=== PATIENT | male | born 1940 | race Caucasian/White ===

== ENCOUNTER → 2018-06-29 09:07 | Outpatient (CLI) | payer MEDICARE, OTHER, SELFPAY ==
--- NOTE | 2018-06-29 | DI.MRI.S_ITS ---
PROCEDURE: MR KNEE RT WO CON INDICATIONS: PRIMARY OSTEOARTHRITIS RIGHT KNEE TECHNIQUE: Noncontrast sagittal PD fast spin echo and T2 fast spin echo with fat saturation, sagittal 3-D FLASH with fat saturation; coronal T1 spin echo and PD fast spin echo with fat saturation, and axial PD fast spin echo with fat saturation through the knee. COMPARISON: None. FINDINGS: Image quality: Excellent. Menisci: There is peripheral displacement of medial meniscus bowing medial collateral ligament. A complex oblique tear involving posterior horn of medial meniscus is seen extending to the inferior articulating surface. Peripheral displacement of lateral meniscus is also seen with extensive signal abnormality throughout lateral meniscus extending to both superior and inferior articulating surface. The meniscal root ligaments appear intact. Cruciate ligaments: The anterior and posterior cruciate ligaments appear intact. Medial structures: The medial collateral ligament appears intact. The posterior oblique ligament, semimembranosus tendon insertions, oblique popliteal ligament, and meniscocapsular junction appear intact. Visualized portions of the pes anserinus tendons appear normal. No abnormal bursal fluid. Lateral structures: The lateral collateral ligament, long and short heads of the biceps femoris tendon appear intact. The popliteus tendon appears normal; the popliteofibular ligament appears intact. The posterosuperior and anteroinferior popliteomeniscal fascicles appear intact. The arcuate and fabellofibular ligaments appear intact, on either side of the lateral inferior geniculate artery. Iliotibial band appears normal. Anterior structures: The quadriceps and patellar tendons appear intact. Patellar alignment is normal. No femoral trochlear dysplasia or ventral trochlear prominence. No edema in the infrapatellar fat pad. Bones and cartilage: Moderate to severe tricompartmental osteoarthritis is seen most prominent in lateral femoral tibial compartment. Extensive marrow edema involving proximal tibial shaft extending to both medial and lateral tibial plateau is seen. Adjacent marrow edema in weight bearing portion of lateral femoral condyle is seen. No definite discrete fracture line is noted. Patellar cartilage is grossly intact. Joint space: There is moderate amount of joint fluid. Possible 14 x 9 mm loose body is noted in the posterior medial aspect of right knee joint posterior and inferior to medial femoral condyle. No Tucker's cyst. Normal appearing synovial plicae are incidentally noted. IMPRESSION: 1. Moderate to severe tricompartmental osteoarthritis most prominent in lateral femoral tibial compartment. Extensive marrow edema involving proximal tibial shaft extending to medial and lateral tibial plateau. Marrow edema also seen in the adjacent weight-bearing portion of lateral femoral condyle. Finding may represent bony contusion versus changes secondary to osteoarthritis. No definite fracture is seen. 2. Moderate amount of joint effusion with a possible loose body in posterior aspect of medial femoral tibial compartment. 3. Oblique tear involving posterior horn of medial meniscus extending to inferior articulating surface. Complex tear throughout lateral meniscus extending to both superior and inferior articulating surfaces. Cruciate ligaments are intact. Dictated by: Thierry Petty M.D. on 06/29/2018 12:30 Approved by: Thierry Petty M.D. on 06/29/2018 at 13:15
== END ==
PROVIDERS: PCP Family Medicine; Visit Provider Orthopaedic Surgery
DX: S83.271A Complex tear of lateral meniscus, current injury, right knee, initial encounter (principal); S83.241A Other tear of medial meniscus, current injury, right knee, initial encounter; M17.11 Unilateral primary osteoarthritis, right knee; M25.461 Effusion, right knee
CPT/HCPCS: 73721

== ENCOUNTER 2018-08-04 15:37 | Observation (INO) | payer MEDICARE, OTHER, SELFPAY ==
[2018-07-26 08:34] VITALS: BMI 26.8
[2018-08-03] VITALS (14 sets, daily range): BP systolic 106–159; BP diastolic 62–85; PULSE 67–87; RESP 11–21; TEMP 36.1–36.8; O2SAT 93–98; BMI 26.8
--- NOTE | 2018-08-03 06:00 | DI.RAD.S_ITS ---
PROCEDURE: XR KNEE RT 1TO2V INDICATIONS: post operative right knee TECHNIQUE: 2 view(s) of the knee acquired. COMPARISON: [facility] [place], [place], XR KNEE ARTHRITIC SERIES RT, 06/06/2018, 13:16. FINDINGS: Bones: Patient is status post knee joint arthroplasty. Hardware components are in expected positions. Visualized bony structures are intact. Soft tissues: Expected postsurgical changes within the overlying soft tissues are present there is a soft tissue air, edema, and fluid. Surgical skin cynthia are seen overlying the midline anterior knee. No unexpected radiopaque foreign bodies are evident. IMPRESSION: Expected postoperative changes related to a total right knee arthroplasty. Dictated by: Tyrell Carrillo M.D. on 08/03/2018 at 12:50 Approved by: Tyrell Carrillo M.D. on 08/03/2018 at 12:51
[2018-08-03] MEDS: PREGABALIN 75 MG CAPSULE PO (09:11)
[2018-08-03] MEDS: ACETAMINOPHEN 325 MG TABLET 975 MG PO ×3 (09:12→20:51)
[2018-08-03] MEDS: CELECOXIB 200 MG CAPSULE PO (09:13)
[2018-08-03] MEDS: LACTATED RINGERS 1,000 ML 42 ML IV (09:28)
--- NOTE | 2018-08-03 10:07 | PM.PREOP ---
Pre-operative Note Interval Note Pre-op Check: Yes History & Physical Reviewed by Physician and Yes Exam Performed Changes: No
--- NOTE | 2018-08-03 10:08 | PM.OP.1 ---
Operative Date/Time/Diagnoses Date of procedure: 08/03/18 Time of procedure: 11:50 Pre-op diagnosis: Right knee osteoarthritis Post-op diagnosis: same Procedure & Clinicians Procedure: Right total knee arthroplasty Same procedure as scheduled: Yes Indications: The patient presents today for total knee arthroplasty after failure of conservative treatment. The nature of the procedure including the risks and benefits, alternatives, postoperative course and expected outcome were discussed and all questions answered. Consent was obtained. Operative site confirmed and marked. Surgeon: Roman Johnston Manager Business Continuity: Lico Choudhury Anesthesia Type: General, Spinal and Local Operative Notes Findings: Severe osteoarthritis with valgus alignment. Closure Type: primary Specimen(s): none sent Implants & Drains: [employer] BCS: 7 femoral component, 6 tibial component, 9 mm BCS polyethylene tray and 35 x 9 mm round patella Applied: implant(s) Estimated Blood Loss (mL): 50 Blood products transfused: none Tourniquet time (min): 20 Procedure in detail: The patient was taken to the operative suite and placed under general and spinal anesthesia. The patient was given prophylactic antibiotics prior to surgery. The patient was also given tranexamic acid, 1 g, just prior to surgery for postoperative hemostasis. The lateral knee was prepped and the joint injected with 20 mL of 1% Lidocaine with epinephrine. The knee was then prepped and draped in usual sterile fashion. The leg was exsanguinated with an Esmarch dressing and the tourniquet raised to 250 torr. A 15 cm anterior incision was made. Next a medial trivector arthrotomy was made. The extensor mechanism was marked to ensure accurate repair. Initial exposing dissection was carried out medially and laterally. The knee was then extended and the patellar thickness was measured and a cut made removing approximately 9 mm of bone with a goal of restoring normal patellar thickness. The patella was then sized and drilled. Some excess lateral bone was excised and the patellofemoral ligament released. The tourniquet was then released. The knee was then flexed and the [employer] femoral guide was placed. The anterior pins were placed and the distal rotation holes drilled. The distal cutting guide was placed and the templated distal femoral cut was made. The templating cutting block was then placed and the anterior, posterior and chamfer cuts made. The [employer] tibial guide was placed and the alignment checked along the axis of the proximal tibial with a greyson. The proximal tibial cut was then made with an oscillating saw. All meniscus and bony debris was then removed. Flexion extension gaps were checked. No specific balancing was required other than routine exposure and removal of osteophytes. The soft tissues were then injected with a combination of 20 mL of half percent Marcaine with epinephrine and 20 mL of Exparel. The trial components were then placed. The knee went into full extension and flexion beyond 120?. There was excellent medial- lateral balance throughout motion. Patellar tracking was excellent. The trial components were removed and size is confirmed for the final implants. The knee was then exsanguinated with an Esmarch dressing and the tourniquet reapplied for cementing. The knee was cleansed with Pulsavac irrigation and dried. The final components were cemented in with high viscosity vacuum mixed bone cement with antibiotics. The knee was held in extension and the patellar clamp until the cement had adequately cured. The knee was then irrigated with dilute Betadine solution. The extensor mechanism was closed with 5 interrupted #1 Vicryl sutures in 90 degrees of flexion. The joint was then injected with a combination of 1 g of tranexamic acid and 20 mL of quarter percent Marcaine with epinephrine. The subcutaneous tissue was closed with 2-0 Vicryl. The skin was closed with cynthia and surgical adhesive. An Aquacell dressing and Tyson wrap were then applied. Complications: none Condition: stable Disposition: PACU Plan for aftercare: [facility] protocol.
[2018-08-03] MEDS: CEFAZOLIN 2 GM/100 ML FROZ.PIGGY IV ×2 (10:15→18:01)
--- NOTE | 2018-08-03 10:31 | SUR.PREOP ---
Block start time [1025] . Monitoring initiated and maintained throughout procedure. Oxygen and medications given per anesthesiologist instructions. Patient remained stable throughout procedure, no adverse reactions noted. Block end time [1029 ].
[2018-08-03] MEDS: LIDOCAINE 1% W/EPI INJ 20 ML INJ (10:45)
[2018-08-03] MEDS: BUPIVACAINE 0.5% W/ EPI (PF) 20 ML, BUPIVACAINE LIPOSOME 266 MG, SODIUM CHLORIDE 0.9% 8... INJ (11:21)
--- NOTE | 2018-08-03 11:21 | PM.PROC.1 ---
Procedures Date/Time Date of procedure: 08/03/18 Time of procedure: 10:10 General Procedure description: Ultrasound guided adductor canal nerve block for post op pain control after right total knee arthroplasty by Dr. Johnston. Risk and benefits of procedure discussed with patient. ASA monitoring applied to patient. O2 given via nasal cannula. 1 mg Versed and 50 mcg fentanyl given for procedural sedation. Skin site was prepped with chlorhexidine and allowed to fully dry. Sterile gloves, mask, hat and probe cover were used to maintain sterility. 2% lidocaine and 30ga needle was used to make a small skin wheal at needle insertion site. Under ultrasound guidance, a 21ga 100mm Pajunk needle was directed into the adductor canal near femoral artery and saphenous nerve at the level of mid thigh. Patient reported no parasthesias. After negative aspiration, 20 mL 0.5% ropivicaine and 10mg dexamethasone were injected around saphenous nerve. Patient tolerated procedure well.
[2018-08-03] MEDS: POVIDONE-IODINE 15 ML, SODIUM CHLORIDE 0.9% 250 ML TOP (11:22)
[2018-08-03] MEDS: BUPIVACAINE 0.5% W/ EPI (PF) 10 ML, TRANEXAMIC ACID 1,000 MG, SODIUM CHLORIDE 0.9% 20 ML INJ (11:23)
[2018-08-03] MEDS: LACTATED RINGERS 1,000 ML 125 ML IV ×2 (13:35→22:11)
--- NOTE | 2018-08-03 16:09 | PC.NURSE ---
Day Shift- Report rec'd from MAKAYLA holbrook in PACU at 1235 on current pt status. Pt arrived to unit room 212 at 1255 via bed. Oriented to call light, post op routines. A&OX4. Denies pain, able to move LLE slightly off bed, light ankle pumps. At 1430 reassessment, pt able to bend at both knees, lift BLE further off bed, RLE not against resistance. Right foot that was previously drifting inwards in now at a straight position. Continues to deny pain. Med list reviewed, Pt wanting to take his own medications brought from home. Will send to pharmacy to ID, Evening RN aware. Explained to pt that medications are not to be left in his room for safety. Pt agreeable. VSS, pt tolerated water, crackers, pudding, and 1/2 sandwich.
--- NOTE | 2018-08-03 16:40 | PT.IIE ---
Current Diagnoses Unilateral primary osteoarthritis, right knee (08/03/18) Surgery Performed Operation Date: 08/03/18 10:15 Actual Procedures p Total Knee Arthroplasty(Right) - Roman Johnston MD Surgical History (Last Updated 07/26/18 @ 09:00 by Carol Thompson RN) History of lumbar fusion (Acute) Hx of appendectomy (Acute) Hx of colonoscopy (Acute) Hx of cystoscopy (Acute) Hx of esophagogastroduodenoscopy (Acute) Hx of laminectomy (Acute) Status post bilateral LASIK surgery (Acute) Status post bilateral cataract extraction (Acute) Medical History (Last Updated 07/26/18 @ 08:53 by Carol Thompson RN) Anxiety (Acute) Bladder polyp (Acute) CVA (cerebral vascular accident) (Acute) Easy bruisability (Acute) Enlarged prostate (Acute) Fragile skin (Acute) GERD (gastroesophageal reflux disease) (Acute) [place] (hard of hearing) (Acute) Hx of urethral stricture (Acute) Hyperlipidemia (Acute) Kidney infection (Acute) Pneumonia (Acute) RBBB (Acute) Sciatica (Acute) Seasonal allergies (Acute) Physical Therapy Inpatient Evaluation/Re-Eval M1 PT/OT-IP Prior Functional Status Start: 08/03/18 18:00 Freq: NEEDED Status: Active Protocol: Document 08/03/18 16:40 AB (Rec: 08/03/18 18:09 AB [id number]) Medical Review Prior Functional Status Medical History Reviewed Yes Communication able to make needs known Mobility and Gait stated that he is independent with all mobilities and ambulation without AD. pt able to drive prior to surgery . Social History Household Members none Living Arrangements House Number of Floors (Floors) Two Floors Number of Stairs To Enter/Railing? has 4 steps to enter with wide bilateral rails and can only hold on to one rail at a time. pt will stay on mail level of the house. 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 M2 PT-IP Current Condition Start: 08/03/18 18:00 Freq: NEEDED Status: Active Protocol: Document 08/03/18 16:40 AB (Rec: 08/03/18 18:09 AB [id number]) Physical Therapy Current Condition Current Condition Evaluation Date 08/03/18 Treatment Diagnosis s/p R TKA Onset Date 08/03/18 Weight Bearing Status Weight Bearing Status Weight Bear as Tolerated M3 PT-IP Subjective Start: 08/03/18 18:00 Freq: NEEDED Status: Active Protocol: Document 08/03/18 16:40 AB (Rec: 08/03/18 18:09 AB [id number]) Subjective Physical Therapy Visit Type Type Initial Evaluation Visit Start Time 16:40 Visit Stop Time 17:15 Total Visit Minutes 35 Number of ENVIRONMENTAL ISSUES INSTRUCTOR Visits 0 Physical Therapy Visit Comments Patient Comments pt agreeable to get up Therapy Pain Assessment Pain Present Pain Present Denied Pain M4 PT-IP Mobility and Gait Start: 08/03/18 18:00 Freq: NEEDED Status: Active Protocol: Document 08/03/18 16:40 AB (Rec: 08/03/18 18:09 AB [id number]) PT-Bed Mobility Assessment Supine to Sit Supine to Sit Standby Assistance Sit to Supine Sit to Supine Standby Assistance PT-Transfer Assessment Sit to and From Stand Sit to and from Stand Standby Assistance Equipment Transfer Assistive Device Gait Belt Front Wheeled Walker Orthotic/Prosthetic Devices or Brace: No Transfers Transfer Destination Chair Transfer Technique pt ambulated towards the chair using FWW Transfer Ability Level of Assist Contact Guard Assistance Gait Assessment Gait Gait Assistance Required: Contact Guard Assist Distance (Feet) 35 Able to Maintain Weight Bearing Status Yes During Gait Assistive Devices Assistive Device Gait Belt Front Wheeled Walker Orthotic/Prosthetic Devices or Brace: No Factors Limiting Gait Function Factors Limiting Gait Function Decreased Strength Poor Balance PT-Balance Assessment Sitting Balance and Reactions Static Sitting Balance Ability Good Dynamic Sitting Balance Ability Good Standing Balance and Reactions Static Standing Balance Ability Fair Dynamic Standing Balance Ability Fair Device Used FWW M5 PT-IP Objective Assessments Start: 08/03/18 18:00 Freq: NEEDED Status: Active Protocol: Document 08/03/18 16:40 AB (Rec: 08/03/18 18:09 AB [id number]) Orientation Orientation/Cognition Level of Alertness Alert Orientation Name Age Birthday Month Date Year Day of Week Place Situation Safety Awareness Understands Safety Issues Gross Range of Motion Lower Extremity ROM Assessment Within Functional Limits Strength Lower Extremity Strength Assessment Within Functional Limits Sensation Assessment Sensation Gross Sensation WNL Muscle Tone Muscle Tone WNL Yes M6 PT-IP Treatment Start: 08/03/18 18:00 Freq: NEEDED Status: Active Protocol: Document 08/03/18 16:40 AB (Rec: 08/03/18 18:09 AB [id number]) Physical Therapy Treatment Education Education Provided Precautions Weight Bearing Status Post-Op Packet Safety M7 PT-IP Assessment and Plan Start: 08/03/18 18:00 Freq: NEEDED Status: Active Protocol: Document 08/03/18 16:40 AB (Rec: 08/03/18 18:09 AB [id number]) PT Summary Assessment and Plan Potential Rehabilitation Potential Good Status of Condition at Evaluation Stable Summary Impairments Pain ROM Strength Balance Coordination Sensation Tone Cognition Bed Mobility Transfers Gait Activity Tolerance Assessment Summary pt requiring CGA with mobility . Denied pain at this time but pt just had surgery today. informed pt regarding possible pain later on that will affect mobility and pt understood. will continue to assess. Goals Bed Mobility Goal Independent Transfer Goal Independent Gait Goal Independent Gait Distance 200 Other Goals up/down 1 step using FWW SBA up/down 4 steps one rail with/ without SPC on other side SBA Days to Meet Goals 3 Frequency of Treatment Frequency Of Treatment Twice a Day Treatment Plan Physical Therapy Treatment Plan Bed Mobility Training Transfer Training Gait Training Therapeutic Exercise Balance Retraining Post Op Education Discharge Planning Hot or Cold Pack Neuromuscular Re-ed Coordination Retraining Manual Therapy Other Recommendations and Next Treatment ambulation, stair climbing Focus Recommendations To Nursing Amount of Assist Needed 1 Person Assist Discharge Recommendations PT Discharge Recommendations Home with Assistance Outpatient PT
--- NOTE | 2018-08-03 16:43 | PC.NURSE ---
Took patients medications in room and sent some to pharmacy to ID and 3 bottles to keep in safe. Sent to pharmacy to ID: Aspirin 5 tabs alfuzosin 3 tabs zantac 6 tabs HCTZ-Lisinopril 2 tabs dutasteride 3 capsules Atorvastatin 3 tabs Bottles sent to pharmacy to place in safe until discharge: Oxycodone 5mg tabs Meloxicam 15mg tabs Tylenol Extra strength tabs
--- NOTE | 2018-08-03 20:25 | PC.NURSE ---
Patient attempted several times to void this shift and has been unsuccessful. Bladder scanned per protocol and found over 1000 ml in bladder. Straight cathed patient per protocol and got 1250 ml out total. Patient states he has some sensation of his bladder but not totally. Will continue to monitor. Call light in reach.
[2018-08-03] MEDS: ATORVASTATIN 20 MG TABLET 40 MG PO (20:51)
[2018-08-03] MEDS: ASPIRIN EC 81 MG TABLET PO (20:51)
[2018-08-04] MEDS: CEFAZOLIN 2 GM/100 ML FROZ.PIGGY IV (02:10)
[2018-08-04 06:01] VITALS: BP 138/69; PULSE 64; RESP 16; TEMP 37; O2SAT 96
[2018-08-04 06:37] LABS: Hematocrit 39.2 % (41-53); Hemoglobin 13.4 g/dL (13.5-17.5)
[2018-08-04 08:10] VITALS: BP 146/78; PULSE 71; RESP 146; TEMP 36.4; O2SAT 98
[2018-08-04] MEDS: ASPIRIN EC 81 MG TABLET PO ×2 (09:16→20:05)
[2018-08-04] MEDS: DUTASTERIDE 0.5 MG CAPSULE PO (09:16)
[2018-08-04] MEDS: hydroCHLOROthiazide 12.5 MG CAPSULE PO (09:16)
[2018-08-04] MEDS: ACETAMINOPHEN 325 MG TABLET 975 MG PO ×3 (09:16→20:04)
[2018-08-04] MEDS: LOSARTAN 50 MG TABLET PO (09:16)
[2018-08-04] MEDS: Alfuzosin [Uroxatral] 10 MG 10 EACH PO (10:55)
--- NOTE | 2018-08-04 12:11 | P.PN_ITS ---
Subjective Date Patient Seen: 08/04/18 Time Patient Seen: 07:40 Interval history: Post op day 1 status post R TKA with Dr. Johnston. Patient is laying in bed comfortably with no sign of distress. He reports no pain at this time. Patient reports ambulating around his room with PT yesterday. He also reports ambulating to bathroom with walker. He reports that he would like to stay 2 more days in the hospital to work with PT due to his friend being able to help assist him at home on Wednesday. Patient is [facility] protocol. Patient denies any fever, chills, nausea, vomiting, SOB or chest pain. Overall, he is doing great. Exam Vital Signs (past 8 hours): - 08/04/18 06:01 08/04/18 08:10 Temperature 98.6 F 97.5 F L Pulse Rate 64 71 Respiratory Rate 16 146 H Blood Pressure 138/69 146/78 H Pulse Oximetry 96 98 Oxygen Delivery Method Room Air Oxygen Flow Rate 0 Narrative Exam Narrative: Patient is AOx3. He is a pleasant male in no acute distress. Radial and dorsalis pedis pulses 2+ and symmetric. Muscle strength 5/5 in dorsiflexion, plantarflexion and final expense agent bilaterally. No neurological deficits noted. Sensation to light touch intact bilaterally. Calfs are non tender, compressible and soft bilaterally. R knee SURENDRA bandage noted and CDI. Patient is able to actively flex and extend R knee. Objective Labs Result Diagrams: 08/04/18 05:51 Labs: Laboratory Results - last 24 hr 08/04/18 05:51 Hgb 13.4 L Hct 39.2 L Assessment & Plan Post-op Postoperative Procedures Operation Date: 08/03/18 10:15 Actual Procedures Side Surgeon p Total Knee Arthroplasty Right Roman Johnston MD Postoperative day: 1 Postoperative status: doing well Postoperative plan: routine post-op care Postoperative plan narrative: Continue to mobilize with PT. Likely to be discharged home in 2 days. Time Spent With Patient less than 15 minutes Quality VTE Deep Vein Thrombosis/Pulmonary Embolism Present on Admission: No
[2018-08-04 12:55] VITALS: BP 131/56; PULSE 95; RESP 16; TEMP 36.6; O2SAT 95
--- NOTE | 2018-08-04 14:24 | PT.IPTN ---
Current Diagnoses Unilateral primary osteoarthritis, right knee (08/03/18) Surgery Performed Operation Date: 08/03/18 10:15 Actual Procedures p Total Knee Arthroplasty(Right) - Roman Johnston MD Physical Therapy Treatment Note M2 PT-IP Current Condition Start: 08/03/18 18:00 Freq: NEEDED Status: Active Protocol: Document 08/03/18 16:40 AB (Rec: 08/03/18 18:09 AB [id number]) Physical Therapy Current Condition Current Condition Evaluation Date 08/03/18 Treatment Diagnosis s/p R TKA Onset Date 08/03/18 Weight Bearing Status Weight Bearing Status Weight Bear as Tolerated M3 PT-IP Subjective Start: 08/03/18 18:00 Freq: NEEDED Status: Active Protocol: Document 08/04/18 09:50 CLB (Rec: 08/04/18 14:24 CLB [email or web address]) Subjective Physical Therapy Visit Type Type Treatment Note Visit Start Time 09:50 Visit Stop Time 10:28 Total Visit Minutes 38 Number of CONTENT COORDINATOR Visits 1 Physical Therapy Visit Comments Patient Comments pt agreeable to get up Therapy Pain Assessment Pain Present Pain Present Denied Pain M4 PT-IP Mobility and Gait Start: 08/03/18 18:00 Freq: NEEDED Status: Active Protocol: Document 08/04/18 09:50 CLB (Rec: 08/04/18 14:24 CLB [id number]) PT-Bed Mobility Assessment Supine to Sit Supine to Sit Standby Assistance Sit to Supine Sit to Supine Standby Assistance PT-Transfer Assessment Sit to and From Stand Sit to and from Stand Standby Assistance Equipment Transfer Assistive Device Gait Belt Front Wheeled Walker Transfers Transfer Destination Chair Transfer Technique pt ambulated towards the chair using FWW Transfer Ability Level of Assist Standby Assistance Gait Assessment Gait Gait Assistance Required: Contact Guard Assist Distance (Feet) 200 Able to Maintain Weight Bearing Status Yes During Gait Assistive Devices Assistive Device Gait Belt Front Wheeled Walker Orthotic/Prosthetic Devices or Brace: No Factors Limiting Gait Function Factors Limiting Gait Function Decreased Strength Poor Balance Comments Gait Comments Pt ambulating with step through gait pattern with good safety awareness with cues to slow pace. Stair Climbing Assessment Evaluation Level of Assist On Stairs Contact Guard Assistance Devices Stair Climbing Assistive Devices Left Railing Technique/Endurance Stair Climbing Direction Ascend and Descend Stair Climbing Technique Step to Step Number of Steps Climbed 3 Query Text: Stair Climbing Set # Repetitions (reps) 2 PT-Balance Assessment Sitting Balance and Reactions Static Sitting Balance Ability Good Dynamic Sitting Balance Ability Good Standing Balance and Reactions Static Standing Balance Ability Fair Dynamic Standing Balance Ability Fair Device Used FWW M5 PT-IP Objective Assessments Start: 08/03/18 18:00 Freq: NEEDED Status: Active Protocol: Document 08/03/18 16:40 AB (Rec: 08/03/18 18:09 AB [id number]) Orientation Orientation/Cognition Level of Alertness Alert Orientation Name Age Birthday Month Date Year Day of Week Place Situation Safety Awareness Understands Safety Issues Gross Range of Motion Lower Extremity ROM Assessment Within Functional Limits Strength Lower Extremity Strength Assessment Within Functional Limits Sensation Assessment Sensation Gross Sensation WNL Muscle Tone Muscle Tone WNL Yes M6 PT-IP Treatment Start: 08/03/18 18:00 Freq: NEEDED Status: Active Protocol: Document 08/04/18 09:50 CLB (Rec: 08/04/18 14:24 CLB [email or web address]) Physical Therapy Treatment Exercises Exercises Ankle Pumps Quad Sets Heel Slides Straight Leg Raises Short Arc Quads Education Education Provided Precautions Weight Bearing Status Post-Op Packet Safety M7 PT-IP Assessment and Plan Start: 08/03/18 18:00 Freq: NEEDED Status: Active Protocol: Document 08/04/18 09:50 CLB (Rec: 08/04/18 14:24 CLB [email or web address]) PT Summary Assessment and Plan Potential Rehabilitation Potential Good Status of Condition at Evaluation Stable Summary Impairments Pain ROM Strength Balance Coordination Sensation Tone Cognition Bed Mobility Transfers Gait Activity Tolerance Assessment Summary Pt improving with all mobility , he continues to deny having pain. Pt was able to safely trial stairs and ambulate ~ 200ft. Pt able to d/c when medically stable. Goals Bed Mobility Goal Independent Transfer Goal Independent Gait Goal Independent Gait Distance 200 Other Goals up/down 1 step using FWW SBA up/down 4 steps one rail with/ without SPC on other side SBA Days to Meet Goals 3 Frequency of Treatment Frequency Of Treatment Twice a Day Treatment Plan Physical Therapy Treatment Plan Bed Mobility Training Transfer Training Gait Training Therapeutic Exercise Balance Retraining Post Op Education Discharge Planning Hot or Cold Pack Neuromuscular Re-ed Coordination Retraining Manual Therapy Other Recommendations and Next Treatment ambulation, ther ex. Focus Recommendations To Nursing Amount of Assist Needed 1 Person Assist Discharge Recommendations PT Discharge Recommendations Home with Assistance Outpatient PT
[2018-08-04 15:10] VITALS: BP 119/63; PULSE 93; RESP 18; TEMP 36.2; O2SAT 98
[2018-08-04] MEDS: OXYCODONE IR 5 MG TABLET PO ×3 (15:40→23:59)
--- NOTE | 2018-08-04 17:14 | PT.IPTN ---
Current Diagnoses Unilateral primary osteoarthritis, right knee (08/03/18) Surgery Performed Operation Date: 08/03/18 10:15 Actual Procedures p Total Knee Arthroplasty(Right) - Roman Johnston MD Physical Therapy Treatment Note M2 PT-IP Current Condition Start: 08/03/18 18:00 Freq: NEEDED Status: Active Protocol: Document 08/03/18 16:40 AB (Rec: 08/03/18 18:09 AB [id number]) Physical Therapy Current Condition Current Condition Evaluation Date 08/03/18 Treatment Diagnosis s/p R TKA Onset Date 08/03/18 Weight Bearing Status Weight Bearing Status Weight Bear as Tolerated M3 PT-IP Subjective Start: 08/03/18 18:00 Freq: NEEDED Status: Active Protocol: Document 08/04/18 16:54 EA (Rec: 08/04/18 17:14 EA [id number]) Subjective Physical Therapy Visit Type Type Treatment Note Visit Start Time 13:45 Visit Stop Time 14:15 Total Visit Minutes 30 Number of ANGLE DOZER OPERATOR Visits 1 Physical Therapy Visit Comments Patient Comments Pt reports that he would be staying for another 2 days as he has no company at home and would like to be as independent as he can prior to discharge. Patient Goals Indepednt in all functional transfers and mobility Therapy Pain Assessment Pain When Pain Assessed At Rest Pain Present Pain Present Pain Reported M4 PT-IP Mobility and Gait Start: 08/03/18 18:00 Freq: NEEDED Status: Active Protocol: Document 08/04/18 16:54 EA (Rec: 08/04/18 17:14 EA [id number]) PT-Bed Mobility Assessment Supine to Sit Supine to Sit Independent Sit to Supine Sit to Supine Independent Scooting Scooting to Edge of Bed Standby Assistance PT-Transfer Assessment Sit to and From Stand Sit to and from Stand Standby Assistance Equipment Transfer Assistive Device Gait Belt Front Wheeled Walker Transfers Transfer Technique stepping Transfer Ability Level of Assist Standby Assistance Gait Assessment Gait Gait Assistance Required: Standby Assistance Able to Maintain Weight Bearing Status Yes During Gait Assistive Devices Assistive Device Gait Belt Front Wheeled Walker Gait Deviations General Gait Pattern Antalgic Factors Limiting Gait Function Factors Limiting Gait Function Decreased Strength Pain Comments Gait Comments Minimal antalgic noted but able to step through. Ambulated ~ 250 ft Stair Climbing Assessment Evaluation Level of Assist On Stairs Standby Assistance Devices Stair Climbing Assistive Devices Right Railing Technique/Endurance Stair Climbing Direction Ascend and Descend Stair Climbing Technique Step to Step Number of Steps Climbed 6 Query Text: Stair Climbing Set # Repetitions (reps) 2 PT-Balance Assessment Sitting Balance and Reactions Static Sitting Balance Ability Good Dynamic Sitting Balance Ability Good Standing Balance and Reactions Static Standing Balance Ability Good Dynamic Standing Balance Ability Fair M5 PT-IP Objective Assessments Start: 08/03/18 18:00 Freq: NEEDED Status: Active Protocol: Document 08/03/18 16:40 AB (Rec: 08/03/18 18:09 AB [id number]) Orientation Orientation/Cognition Level of Alertness Alert Orientation Name Age Birthday Month Date Year Day of Week Place Situation Safety Awareness Understands Safety Issues Gross Range of Motion Lower Extremity ROM Assessment Within Functional Limits Strength Lower Extremity Strength Assessment Within Functional Limits Sensation Assessment Sensation Gross Sensation WNL Muscle Tone Muscle Tone WNL Yes M6 PT-IP Treatment Start: 08/03/18 18:00 Freq: NEEDED Status: Active Protocol: Document 08/04/18 16:54 EA (Rec: 08/04/18 17:14 EA [id number]) Physical Therapy Treatment Exercises Exercises Ankle Pumps Gluteal Sets Quad Sets Heel Slides Straight Leg Raises Short Arc Quads Education Education Provided Precautions Weight Bearing Status Post-Op Packet M7 PT-IP Assessment and Plan Start: 08/03/18 18:00 Freq: NEEDED Status: Active Protocol: Document 08/04/18 16:54 EA (Rec: 08/04/18 17:14 EA [id number]) PT Summary Assessment and Plan Potential Rehabilitation Potential Good Status of Condition at Evaluation Stable Summary Impairments ROM Strength Transfers Gait Activity Tolerance Progress Towards Goals Progressing Toward Goals Assessment Summary Pt continued to show mobility improvement with SBA and use FWW with minimal antalgic gait during ambulation. Pt was able to navigate 6 steps with single rail. Continue with current plan and discharge patient to skilled PT upon reaching goals. Goals Bed Mobility Goal Independent Transfer Goal Independent Gait Goal Independent Gait Distance 300 Days to Meet Goals 1 Frequency of Treatment Frequency Of Treatment Twice a Day Treatment Plan Physical Therapy Treatment Plan Transfer Training Gait Training Therapeutic Exercise Post Op Education Discharge Planning Other Recommendations and Next Treatment Distance ambulation and stairs Focus and standard cane as able. Recommendations To Nursing Amount of Assist Needed 1 Person Assist Discharge Recommendations PT Discharge Recommendations Home
[2018-08-04 19:40] VITALS: BP 134/70; PULSE 76; RESP 18; TEMP 36.2; O2SAT 99
[2018-08-04] MEDS: ATORVASTATIN 20 MG TABLET 40 MG PO (20:04)
[2018-08-04 23:00] VITALS: BP 122/75; PULSE 75; RESP 16; TEMP 36.9; O2SAT 95
[2018-08-04] MEDS: IBUPROFEN 600 MG TABLET PO (23:58)
[2018-08-05 06:00] VITALS: BP 131/71; PULSE 71; RESP 16; TEMP 36.7; O2SAT 98
[2018-08-05 07:15] VITALS: BP 140/70; PULSE 68; RESP 16; TEMP 36.3; O2SAT 96
--- NOTE | 2018-08-05 07:47 | PM.PNPO.1 ---
Subjective Date Patient Seen: 08/05/18 Time Patient Seen: 07:47 Interval history: Patient is postop day 2. Status post right total knee replacement with Dr. Johnston. States he is having more pain in the knee today since the block wore off. Need 1 more day in the hospital because [place] [address] and will have help therapy tomorrow. He also wants to be as independent as possible when he goes home. Has is discharge medications already when he goes home. Exam Vital Signs (past 8 hours): - 08/05/18 06:00 Temperature 98.0 F Pulse Rate 71 Respiratory Rate 16 Blood Pressure 131/71 Pulse Oximetry 98 Oxygen Delivery Method Room Air Oxygen Flow Rate 0 Narrative Exam Narrative: Patient lying in bed. Alert orient x3. Right knee dressing clean and dry but the lower right edge has rolled up some. Inner adhesive is still intact. Moderate Lang right knee. Moderate swelling and calf and ankle. Calf soft and nontender bilaterally. 5/5 BLE. Objective Labs Result Diagrams: 08/04/18 05:51 Assessment & Plan Post-op Postoperative Procedures Operation Date: 08/03/18 10:15 Actual Procedures Side Surgeon p Total Knee Arthroplasty Right Roman Johnston MD Postop day 2. Continue pain medication as needed. Continue DVT prophylaxis with aspirin. Continue physical therapy. Plan for discharge home tomorrow. Quality VTE Deep Vein Thrombosis/Pulmonary Embolism Present on Admission: No
[2018-08-05] MEDS: OXYCODONE/ACETAMINOPHEN 5/325 TABLET 1 TAB PO ×2 (07:49→08:30)
[2018-08-05] MEDS: hydroCHLOROthiazide 12.5 MG CAPSULE PO (07:53)
[2018-08-05] MEDS: Alfuzosin [Uroxatral] 10 MG 10 EACH PO (07:53)
[2018-08-05] MEDS: LOSARTAN 50 MG TABLET PO (07:55)
[2018-08-05] MEDS: DUTASTERIDE 0.5 MG CAPSULE PO (07:55)
[2018-08-05] MEDS: ASPIRIN EC 81 MG TABLET PO ×2 (07:55→21:06)
--- NOTE | 2018-08-05 09:18 | CM.DANOTE ---
Addendum entered by Tere Fuller LPN 08/05/18 12:34: Spoke with MAKAYLA Camara after hearing a Rapid Response call for pt's room. She notes that pt had a syncopal episode while he was in the shower. Was in a shower chair so did not fall. Pt is now in bed, noted to be pale but is feeling well enough to eat lunch. UR MAKAYLA Flores is updated. Original Note: Addendum entered by Tere Fuller LPN 08/05/18 11:39: Met with pt as planned. Introduced self and role. Pt is a 78 year old male who admitted 08/03 for a planned surgery: Surgeon: Dr. Johnston Payer: Medicare and [employer]. Admission status: confirmed by DONAVON Flores: SDC: 08/03 to OBS 08/04. Pt says he discussed his plan for snf rehab with his orthopedic physician team prior to surgery. He states he was advised that it would be better for him to stay a few days in the hospital until he was safe for the home setting instead of going right away to the snf rehab. Pt says he is comfortable with the plan he has now for home tomorrow with support from friends and OUTPT: PT all set up at [facility]. Pt notes his block just wore off late yesterday and that the ortho team wanted to make sure he could manage with the full pain experience. OT order obtained to help prepare pt for home setting. Case discussed in Team Rounds. P: home tomorrow. Pt's friend will be here and they are planning to be on the the [address] [facility] to [place]. RN is aware. Original Note: Discharge Planning/Care Management DCP: assessment: Case received yesterday, EMR reviewed. Due to need to triage caseload decision made to see pt today. CM Discharge Assessment Start: 08/05/18 09:04 Freq: Status: Active Protocol: Document 08/05/18 09:04 ITV (Rec: 08/05/18 09:18 ITV [id number]) Discharge Planning Assessment Advance Directives? No Advance Directives on File No History Provided By Patient Medical Record Prior Living Arrangements House Household Members none Independent with ADL's Yes Is patient alert and oriented? Yes Barriers to Discharge Yes Comment had initially planned [facility] for rehab after surgery if needed. Referrals Initiated Long-Term Additional Comment No official referral but received a call from [facility] saying pt was on their radar. Updated her re admission status: SDC as per UR RN Roman Contreras Updated in Patient Room with Yes name and ext. # of Junior Copywriter Review Status In Process Next Review Type Continued Stay Review
--- NOTE | 2018-08-05 11:24 | PT.IPTN ---
Current Diagnoses Unilateral primary osteoarthritis, right knee (08/03/18) Surgery Performed Operation Date: 08/03/18 10:15 Actual Procedures p Total Knee Arthroplasty(Right) - Roman Johnston MD Physical Therapy Treatment Note M2 PT-IP Current Condition Start: 08/03/18 18:00 Freq: NEEDED Status: Active Protocol: Document 08/03/18 16:40 AB (Rec: 08/03/18 18:09 AB [id number]) Physical Therapy Current Condition Current Condition Evaluation Date 08/03/18 Treatment Diagnosis s/p R TKA Onset Date 08/03/18 Weight Bearing Status Weight Bearing Status Weight Bear as Tolerated M3 PT-IP Subjective Start: 08/03/18 18:00 Freq: NEEDED Status: Active Protocol: Document 08/05/18 11:25 GGD (Rec: 08/05/18 12:23 GGD [id number]) Subjective Physical Therapy Visit Type Type Treatment Note Visit Start Time 11:10 Visit Stop Time 11:25 Total Visit Minutes 15 Number of RADIO SURVEY WORKER Visits 1 Physical Therapy Visit Comments Patient Comments Pt states that he would walk before taking a shower. Therapy Pain Assessment Pain When Pain Assessed At Rest Pain Present Pain Present Pain Reported Location Right Knee Intensity 3 M4 PT-IP Mobility and Gait Start: 08/03/18 18:00 Freq: NEEDED Status: Active Protocol: Document 08/05/18 11:25 GGD (Rec: 08/05/18 12:23 GGD [id number]) PT-Transfer Assessment Sit to and From Stand Sit to and from Stand Standby Assistance Equipment Transfer Assistive Device Gait Belt Front Wheeled Walker Transfers Transfer Destination Bedside Commode Gait Assessment Gait Gait Assistance Required: Contact Guard Assist Distance (Feet) 220 Able to Maintain Weight Bearing Status Yes During Gait Assistive Devices Assistive Device Gait Belt Front Wheeled Walker Gait Deviations General Gait Pattern Antalgic Factors Limiting Gait Function Factors Limiting Gait Function Decreased Strength Pain M5 PT-IP Objective Assessments Start: 08/03/18 18:00 Freq: NEEDED Status: Active Protocol: Document 08/03/18 16:40 AB (Rec: 08/03/18 18:09 AB [id number]) Orientation Orientation/Cognition Level of Alertness Alert Orientation Name Age Birthday Month Date Year Day of Week Place Situation Safety Awareness Understands Safety Issues Gross Range of Motion Lower Extremity ROM Assessment Within Functional Limits Strength Lower Extremity Strength Assessment Within Functional Limits Sensation Assessment Sensation Gross Sensation WNL Muscle Tone Muscle Tone WNL Yes M6 PT-IP Treatment Start: 08/03/18 18:00 Freq: NEEDED Status: Active Protocol: Document 08/05/18 11:25 GGD (Rec: 08/05/18 12:23 GGD [id number]) Physical Therapy Treatment Exercises Exercises Ankle Pumps Quad Sets Seated Knee Flexion/Extension M7 PT-IP Assessment and Plan Start: 08/03/18 18:00 Freq: NEEDED Status: Active Protocol: Document 08/05/18 11:25 GGD (Rec: 08/05/18 12:23 GGD [id number]) PT Summary Assessment and Plan Summary Assessment Summary Pt had increase in pain with weight bearing. He is able to progress gait. He needed cues for pace. Frequency of Treatment Frequency Of Treatment Twice a Day Treatment Plan Physical Therapy Treatment Plan Transfer Training Gait Training Therapeutic Exercise Post Op Education Discharge Planning Recommendations To Nursing Amount of Assist Needed 1 Person Assist Discharge Recommendations PT Discharge Recommendations Home with Assistance Outpatient PT
--- NOTE | 2018-08-05 13:19 | PC.NURSE ---
Pt reports pain beginning to increase this am, therefore given 2 percocet. Reported good pain control and ambulated in hallway with OT. Then in shower, began to feel light -headed, and witness OT Mignon reporting brief loss of consciousness while seated on commode. She describes pt as becoming very pale, nonrepsonsive and arching his back with head tilted upwards. After a few minutes with assistance and sternal rub, pt regained consciousness. Remained in sitting position and then was able to stand and walk back to bed. Once in bed, BP was 138/53. Prior to loss of consciousness, the pt's systolic was 85 mm hg. Pt denied chest pain but did continue to feel weak and woozy. Denied nausea. Continue to monitor closely. Pt given reassurance that having a vagal reaction in the shower is not uncommon in post op ortho patients and that it is important that he takes things slowly and have a assistance and a chair to sit down on if necessary.
[2018-08-05 13:45] VITALS: BP 131/64; PULSE 97; RESP 16; TEMP 36.4; O2SAT 95
[2018-08-05 15:10] VITALS: BP 128/71; PULSE 97; RESP 18; TEMP 36.7; O2SAT 97
--- NOTE | 2018-08-05 15:15 | PT.IPTN ---
Current Diagnoses Unilateral primary osteoarthritis, right knee (08/03/18) Surgery Performed Operation Date: 08/03/18 10:15 Actual Procedures p Total Knee Arthroplasty(Right) - Roman Johnston MD Physical Therapy Treatment Note M2 PT-IP Current Condition Start: 08/03/18 18:00 Freq: NEEDED Status: Active Protocol: Document 08/03/18 16:40 AB (Rec: 08/03/18 18:09 AB [id number]) Physical Therapy Current Condition Current Condition Evaluation Date 08/03/18 Treatment Diagnosis s/p R TKA Onset Date 08/03/18 Weight Bearing Status Weight Bearing Status Weight Bear as Tolerated M3 PT-IP Subjective Start: 08/03/18 18:00 Freq: NEEDED Status: Active Protocol: Document 08/05/18 15:10 GGD (Rec: 08/05/18 15:15 GGD [id number]) Subjective Physical Therapy Visit Type Type Treatment Note Visit Start Time 14:45 Visit Stop Time 15:10 Total Visit Minutes 25 Number of SECURITIES ANALYST Visits 2 Physical Therapy Visit Comments Patient Comments Pt states that he is feeling better. Therapy Pain Assessment Pain When Pain Assessed At Rest Pain Present Pain Present Pain Reported Location Right Knee Intensity 4 Scale Used Numeric (1 - 10) M4 PT-IP Mobility and Gait Start: 08/03/18 18:00 Freq: NEEDED Status: Active Protocol: Document 08/05/18 15:10 GGD (Rec: 08/05/18 15:15 GGD [id number]) PT-Transfer Assessment Sit to and From Stand Sit to and from Stand Standby Assistance Equipment Transfer Assistive Device Gait Belt Front Wheeled Walker Transfers Transfer Destination Bedside Commode Comments Mobility Comments Pt stood at sink x 3 min for self care. BP in sitting 131/64, after activity 145/68 Gait Assessment Gait Gait Assistance Required: Contact Guard Assist Distance (Feet) 250 Able to Maintain Weight Bearing Status Yes During Gait Assistive Devices Assistive Device Gait Belt Front Wheeled Walker Gait Deviations General Gait Pattern Antalgic Factors Limiting Gait Function Factors Limiting Gait Function Decreased Strength Pain Stair Climbing Assessment Evaluation Level of Assist On Stairs Standby Assistance Devices Stair Climbing Assistive Devices Right Railing Technique/Endurance Stair Climbing Direction Ascend and Descend Stair Climbing Technique Step to Step Number of Steps Climbed 3 Query Text: Stair Climbing Set # Repetitions (reps) 1 M5 PT-IP Objective Assessments Start: 08/03/18 18:00 Freq: NEEDED Status: Active Protocol: Document 08/03/18 16:40 AB (Rec: 08/03/18 18:09 AB [id number]) Orientation Orientation/Cognition Level of Alertness Alert Orientation Name Age Birthday Month Date Year Day of Week Place Situation Safety Awareness Understands Safety Issues Gross Range of Motion Lower Extremity ROM Assessment Within Functional Limits Strength Lower Extremity Strength Assessment Within Functional Limits Sensation Assessment Sensation Gross Sensation WNL Muscle Tone Muscle Tone WNL Yes M6 PT-IP Treatment Start: 08/03/18 18:00 Freq: NEEDED Status: Active Protocol: Document 08/05/18 15:10 GGD (Rec: 08/05/18 15:15 GGD [id number]) Physical Therapy Treatment Exercises Exercises Ankle Pumps Quad Sets Heel Slides Straight Leg Raises Seated Knee Flexion/Extension Education Education Provided Safety M7 PT-IP Assessment and Plan Start: 08/03/18 18:00 Freq: NEEDED Status: Active Protocol: Document 08/05/18 15:10 GGD (Rec: 08/05/18 15:15 GGD [id number]) PT Summary Assessment and Plan Summary Assessment Summary Pt improved with mobilty. He was safe and stable with stairs and gait. He had no C/O of lightiness or dizziness. Frequency of Treatment Frequency Of Treatment Twice a Day Treatment Plan Physical Therapy Treatment Plan Transfer Training Gait Training Therapeutic Exercise Post Op Education Discharge Planning Recommendations To Nursing Amount of Assist Needed 1 Person Assist Discharge Recommendations PT Discharge Recommendations Home with Assistance Outpatient PT
--- NOTE | 2018-08-05 15:28 | OT.IP.EVAL ---
Current Diagnoses Unilateral primary osteoarthritis, right knee (08/03/18) Surgery Performed Operation Date: 08/03/18 10:15 Actual Procedures p Total Knee Arthroplasty(Right) - Roman Johnston MD Past Medical History (Last Updated 07/26/18 @ 08:53 by Carol Thompson, RN) Anxiety (Acute) Bladder polyp (Acute) CVA (cerebral vascular accident) (Acute) Easy bruisability (Acute) Enlarged prostate (Acute) Fragile skin (Acute) GERD (gastroesophageal reflux disease) (Acute) [place] (hard of hearing) (Acute) Hx of urethral stricture (Acute) Hyperlipidemia (Acute) Kidney infection (Acute) Pneumonia (Acute) RBBB (Acute) Sciatica (Acute) Seasonal allergies (Acute) Surgical History (Last Updated 07/26/18 @ 09:00 by Carol Thompson RN) History of lumbar fusion (Acute) Hx of appendectomy (Acute) Hx of colonoscopy (Acute) Hx of cystoscopy (Acute) Hx of esophagogastroduodenoscopy (Acute) Hx of laminectomy (Acute) Status post bilateral LASIK surgery (Acute) Status post bilateral cataract extraction (Acute) Occupational Therapy Inpatient Evaluation/Re-Eval M1 PT/OT-IP Prior Functional Status Start: 08/03/18 18:00 Freq: NEEDED Status: Active Protocol: Document 08/03/18 16:40 AB (Rec: 08/03/18 18:09 AB [id number]) Medical Review Prior Functional Status Medical History Reviewed Yes Communication able to make needs known Mobility and Gait stated that he is independent with all mobilities and ambulation without AD. pt able to drive prior to surgery . Social History Household Members none Living Arrangements House Number of Floors (Floors) Two Floors Number of Stairs To Enter/Railing? has 4 steps to enter with wide bilateral rails and can only hold on to one rail at a time. pt will stay on main level of the house. 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 M1 PT/OT-IP Prior Functional Status Start: 08/05/18 15:03 Freq: NEEDED Status: Active Protocol: Document 08/05/18 15:06 [facility] (Rec: 08/05/18 15:27 [facility] [id number]) Medical Review Prior Functional Status Medical History Reviewed Yes Communication able to make needs known Mobility and Gait stated that he is independent with all mobilities and ambulation without AD. pt able to drive prior to surgery . Social History Household Members none Living Arrangements House Number of Floors (Floors) Two Floors Number of Stairs To Enter/Railing? has 4 steps to enter with wide bilateral rails and can only hold on to one rail at a time. pt will stay on main level of the house. 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 M2 OT-IP Current Condition Start: 08/05/18 15:03 Freq: Status: Active Protocol: Document 08/05/18 15:06 [facility] (Rec: 08/05/18 15:27 [facility] [id number]) Occupational Therapy Current Condition Current Condition Evaluation Date 08/05/18 Treatment Diagnosis Right Knee Osteoarthritis Diagnosis Onset Date 08/03/18 Weight Bearing Status Weight Bearing Status Weight Bear as Tolerated M3 OT- IP Subjective and Pain Start: 08/05/18 15:03 Freq: Status: Active Protocol: Document 08/05/18 15:06 [facility] (Rec: 08/05/18 15:27 [facility] [id number]) OT- Subjective Occupational Therapy Visit Type Type Initial Evaluation Visit Start Time 11:25 Visit Stop Time 12:05 Total Visit Minutes 40 Occupational Therapy Visit Comments Patient/Caregiver Goals Pt wanting to go home when medically stable. OT Pain Assessment Pain When Pain Assessed At Rest Pain Present Pain Present Denied Pain M4 OT- IP ADL's Start: 08/05/18 15:03 Freq: Status: Active Protocol: Document 08/05/18 15:06 [facility] (Rec: 08/05/18 15:27 [facility] [id number]) OT ADL-Dressing General Eval Upper Body Dressing Ability Independent Lower Body Dressing Ability Standby Assistance Areas Needing Assistance Retrieving/Set-up of Clothing Comments OT Dressing Comments VC to dress RLE first and take out RLE last while dressing. Pt does have quality systems manager at home, but not needing it for today. OT ADL-Toileting General Evaluation Toileting Ability Independent OT ADL-Bathing Bathing Type Bathing Type Shower General Evaluation Bathing Ability Standby Assistance Areas Needing Assistance Retrieving/Setting Up Items Wash/Dry Back Devices Bathing Equipment Shower Chair with Arms Grab Bars Comments OT Bathing Comments Pt had a syncopal episode after taking a shower while sitting on the shower chair bp 85 /52, nursing, HEALTH EQUIPMENT SERVICER able to come and assist to get pt back to the bed. M6 OT- IP Functional Cognition Start: 08/05/18 15:03 Freq: Status: Active Protocol: Document 08/05/18 15:06 [facility] (Rec: 08/05/18 15:27 [facility] [id number]) Cognitive Factors Limiting Selfcare Function Cognitive Ability Level of Alertness Alert Patient Orientation Name Age Birthday Month Date Year Day of Week Place Situation Attention Span Ability Capable of Focused Attention Capable of Sustained Attention Ability to Follow Commands Able to Follow Multi-Step Commands Memory Description Immediate Intact Short Term Impaired Senior Care Intact Safety Awareness Underestimates Need for Assistance Problem Solving Ability Needs Assist to Identify Solutions Cognitive Comments Cognitive Assessment Comments Pt needing safety reminders to sit for showering and to get dressed. OT- Vision and Hearing OT- Hearing Assessment OT- Hearing Assessment WFL M7 OT- IP Mobility and Balance Start: 08/05/18 15:03 Freq: Status: Active Protocol: Document 08/05/18 15:06 [facility] (Rec: 08/05/18 15:27 [facility] [id number]) OT-Transfer Assessment Sit to and From Stand Sit to and from Stand Standby Assistance Transfers Transfer Ability Standby Assistance Technique Transfer Destination Bed Chair Shower Stall Toilet Transfer Technique Stand Step Pivot Devices Transfer Assistive Devices Gait Belt Front Wheeled Walker OT- Balance Assessment Sitting Balance and Reactions Static Sitting Balance Ability Normal Dynamic Sitting Balance Ability Normal Standing Balance and Reactions Static Standing Balance Ability Good Dynamic Standing Balance Ability Fair M8 OT- IP Objective Assessments Start: 08/05/18 15:03 Freq: Status: Active Protocol: Document 08/05/18 15:06 [facility] (Rec: 08/05/18 15:27 [facility] [id number]) OT Gross Range of Motion Upper Extremity Range of Motion Assessment Within Functional Limits OT Strength Upper Extremity Strength Assessment Within Functional Limits M9 OT- IP Assessment and Plan Start: 08/05/18 15:03 Freq: Status: Active Protocol: Document 08/05/18 15:06 [facility] (Rec: 08/05/18 15:27 [facility] [id number]) OT Summary Assessment and Plan Potential Rehabilitation Potential Excellent Analytic Complexity at Evaluation Low Summary OT Impairments Pain Balance Functional Mobility Progress Towards Goals Progressing Toward Goals Slow Progress due to Medical Issues Assessment Summary Pt Low complexity and decreased activity tolerance, pain, and looking to have a friend to stay with him initially. Pt to go home when medically stable. Goals Grooming Goal Independent Dressing Goal Independent Toileting Goal Independent Patient/Caregiver Education Goal Demonstrate Energy Conservation and Pacing Caregiver Independent Assisting Patient Days to Meet Goals 1 Frequency of Treatment Frequency Of Treatment Once a Day Treatment Plan OT Treatment Plan Functional Mobility Patient/Family Education Discharge Planning Other Treatment Recommendations and Next Energy conservation Treatment Focus Discharge Recommendations OT Discharge Recommendations Home with Assistance
[2018-08-05] MEDS: OXYCODONE IR 5 MG TABLET PO ×2 (15:55→21:04)
[2018-08-05] MEDS: ACETAMINOPHEN 325 MG TABLET 975 MG PO ×2 (15:55→21:05)
[2018-08-05 17:30] VITALS: TEMP 36.8
[2018-08-05 19:30] VITALS: BP 133/67; PULSE 95; RESP 18; TEMP 36.7; O2SAT 94
[2018-08-05] MEDS: ATORVASTATIN 20 MG TABLET 40 MG PO (21:05)
[2018-08-06 00:15] VITALS: BP 132/98; PULSE 84; RESP 18; TEMP 36.7; O2SAT 96
[2018-08-06] MEDS: OXYCODONE IR 5 MG TABLET PO (07:11)
[2018-08-06 07:30] VITALS: BP 134/69; PULSE 79; RESP 16; TEMP 36.7; O2SAT 97
--- NOTE | 2018-08-06 08:30 | P.DS_ITS ---
History of Present Illness Date Patient Seen: 08/06/18 Time Patient Seen: 08:27 Chief complaint: [id number] RIGHT TOTAL KNEE ARTHROPLASTY Narrative: Details of the patient's H&P can be found on the electronic chart. Discharge Providers Date of admission: 08/03/18 08:25 Primary care physician: Man Gregorio MD Consults: 08/03/18 13:04 Consult to Discharge Planning Routine Comment: Consult to Physical Therapy Evaluate & Treat Comment: Physician Instructions: postop TKA protocol Consult to Respiratory Therapy Evaluate & Treat Comment: Physician Instructions: Evaluate and treat 08/05/18 09:01 Consult to Occupational Therapy Evaluate & Treat Comment: Physician Instructions: Evaluate and treat Discharge provider: Geno Rdz PA-C Summary Discharge Diagnosis: Right knee osteoarthritis Hospital Course: Patient was admitted and taken the operating room he had a right total knee arthroplasty by Dr. Johnston. He recovered well and was transferred to the floor for further care. By postop day 3 patient was ambulating well, eating and drinking well, urinating without difficulty and pain was under control. He was ready to be discharged home. He is a [facility] patient and has his discharge pain medication already. Patient was on [facility]. Physical therapy appointments in follow-up appointments already made. Status at Discharge Cognitive/behavioral status at discharge: Alert orient x3 Functional status at discharge: uses cane/walker Time Spent with Patient Less than 30 minutes Exam Vital Signs (past 8 hours): Oxygen Delivery Method Room Air Oxygen Flow Rate 0 Narrative Exam Narrative: Patient in bed. Appears comfortable. Alert orient x3. Right knee Oxycel dressing with a few stops of dried blood. Though bottom edge of the Aquacel dressing is rolling up but still intact. Patient will be changed to a fresh Aquacel dressing before discharge today. Moderate swelling right knee. Bilateral calf soft and nontender. 5/5 BLE strength. Neurovascular status intact. Objective Labs Result Diagrams: 08/04/18 05:51 Discharge Plan Discharge Plan Patient Disposition: Home Discharge comment: Take aspirin 81 mg twice a day x6 weeks for DVT prophylaxis. Do not take more than 4000 mg of Tylenol/day from all sources. If patient is doing well, may call the office and cancel 1st postop visit. Discharge Med Rec/Prescriptions Prescriptions: New acetaminophen 325 mg Tablet 975 mg PO TID Qty: 0 RF: 0 aspirin 81 mg Tablet,Delayed Release (Dr/Ec) 81 mg PO BID Qty: 0 RF: 0 ibuprofen 600 mg Tablet 600 mg PO Q6HR PRN (Reason: As Needed For Fever/Mild Pain) Qty: 0 RF: 0 oxycodone 5 mg Tablet 5 mg PO Q4-6H PRN (Reason: Pain, Moderate (4-6)) Qty: 30 RF: 0 Continue cholecalciferol (vitamin D3) [Vitamin D3] 2,000 unit Capsule 2,000 unit PO DAILY Qty: 0 RF: 0 ranitidine HCl [Zantac] 150 MG tablet 150 mg PO BID Qty: 60 RF: 5 fluticasone 16 GM spray,suspension 2 spray Intranasal QDAY Qty: 16 RF: 3 dutasteride 0.5 MG capsule 0.5 mg PO Q DAY Qty: 0 RF: 0 atorvastatin [Lipitor] 40 MG tablet 40 mg PO HS Qty: 90 RF: 1 azelastine 137 MCG/0.137 ML aerosol,spray 1 spray Intranasal BID Qty: 2 RF: 2 coenzyme Q10 [CoQ-10] 100 mg Capsule 100 mg Q DAY Qty: 0 RF: 0 losartan-hydrochlorothiazide 50 MG/12.5 MG tablet 1 tab PO QDAY Qty: 90 RF: 3 alfuzosin [Uroxatral] 10 MG tablet extended release 24 hr 10 mg PO QDAY Qty: 90 RF: 1 alprazolam 0.25 MG tablet 0.25 mg PO QDAY PRN (Reason: Anxiety) RF: 0 Discontinued aspirin 81 MG tablet,delayed release (DR/EC) 162 mg PO QDAY Qty: 0 RF: 0 Follow up/Referrals: Roman Johnston MD [Physician] - (Follow-up as scheduled date and time. Contact office with any issues or concerns.) Provider Discharge Instructions Diet: Diet as Tolerated Activity: Activity as tolerated. Ambulate with assistance of a walker/cane. Cold/Heat Therapy: Apply ice to the extremity as needed for pain and inflammation. Skin/Wound/Dressing Care Report to your healthcare provider any signs of infection, such as:: chills, fever, increased pain and unusual drainage Dressing: Leave dressing on. May shower. Discharge Data Primary Care Provider: Man Gregorio Attending Provider: Roman Johnston Admit Date/Time: 08/03/18 08:25 Quality VTE Deep Vein Thrombosis/Pulmonary Embolism Present on Admission: No
[2018-08-06] MEDS: ACETAMINOPHEN 325 MG TABLET 975 MG PO (08:43)
[2018-08-06] MEDS: ASPIRIN EC 81 MG TABLET PO (08:44)
[2018-08-06] MEDS: LOSARTAN 50 MG TABLET PO (08:44)
[2018-08-06] MEDS: hydroCHLOROthiazide 12.5 MG CAPSULE PO (08:44)
[2018-08-06] MEDS: DUTASTERIDE 0.5 MG CAPSULE PO (08:44)
--- NOTE | 2018-08-06 09:53 | OT.IP.TRT ---
Current Diagnoses Unilateral primary osteoarthritis, right knee (08/03/18) Surgery Performed Operation Date: 08/03/18 10:15 Actual Procedures p Total Knee Arthroplasty(Right) - Roman Johnston MD Occupational Therapy Treatment Note M2 OT-IP Current Condition Start: 08/05/18 15:03 Freq: Status: Active Protocol: Document 08/05/18 15:06 [facility] (Rec: 08/05/18 15:27 [facility] [id number]) Occupational Therapy Current Condition Current Condition Evaluation Date 08/05/18 Treatment Diagnosis Right Knee Osteoarthritis Diagnosis Onset Date 08/03/18 Weight Bearing Status Weight Bearing Status Weight Bear as Tolerated M3 OT- IP Subjective and Pain Start: 08/05/18 15:03 Freq: Status: Active Protocol: Document 08/06/18 09:49 [facility] (Rec: 08/06/18 09:53 [facility] [id number]) OT- Subjective Occupational Therapy Visit Type Type Treatment Note Visit Start Time 09:25 Visit Stop Time 09:45 Total Visit Minutes 20 Occupational Therapy Visit Comments Patient/Caregiver Goals Pt going home today. OT Pain Assessment Pain When Pain Assessed At Rest Pain Present Pain Present Denied Pain M4 OT- IP ADL's Start: 08/05/18 15:03 Freq: Status: Active Protocol: Document 08/06/18 09:49 [facility] (Rec: 08/06/18 09:53 [facility] [id number]) OT ADL-Grooming General Evaluation Grooming Ability Independent OT ADL-Oral Care General Eval Oral Care Ability Independent OT ADL-Dressing General Eval Upper Body Dressing Ability Independent Lower Body Dressing Ability Independent Comments OT Dressing Comments Pt able to reach down to do all LB dressing needs and has all AED at home to assist as needed. OT ADL-Toileting General Evaluation Toileting Ability Independent OT ADL-Bathing Comments OT Bathing Comments Pt states to have a friend available for showering needs. M6 OT- IP Functional Cognition Start: 08/05/18 15:03 Freq: Status: Active Protocol: Document 08/06/18 09:49 [facility] (Rec: 08/06/18 09:53 [facility] [id number]) Cognitive Factors Limiting Selfcare Function Cognitive Ability Level of Alertness Alert Patient Orientation Name Age Birthday Month Date Year Day of Week Place Situation Attention Span Ability Capable of Focused Attention Capable of Sustained Attention Ability to Follow Commands Able to Follow Multi-Step Commands Memory Description Immediate Intact Short Term Impaired Software Educator Intact Working Intact Safety Awareness No Deficits Noted Problem Solving Ability No deficits Noted M7 OT- IP Mobility and Balance Start: 08/05/18 15:03 Freq: Status: Active Protocol: Document 08/06/18 09:49 [facility] (Rec: 08/06/18 09:53 [facility] [id number]) OT-Transfer Assessment Sit to and From Stand Sit to and from Stand Independent Transfers Transfer Ability Independent Technique Transfer Destination Chair Toilet Transfer Technique Stand Step Pivot Devices Transfer Assistive Devices Gait Belt Front Wheeled Walker OT- Balance Assessment Sitting Balance and Reactions Static Sitting Balance Ability Normal Dynamic Sitting Balance Ability Normal Standing Balance and Reactions Static Standing Balance Ability Normal Dynamic Standing Balance Ability Good M8 OT- IP Objective Assessments Start: 08/05/18 15:03 Freq: Status: Active Protocol: Document 08/05/18 15:06 [facility] (Rec: 08/05/18 15:27 [facility] [id number]) OT Gross Range of Motion Upper Extremity Range of Motion Assessment Within Functional Limits OT Strength Upper Extremity Strength Assessment Within Functional Limits M9 OT- IP Assessment and Plan Start: 08/05/18 15:03 Freq: Status: Active Protocol: Document 08/06/18 09:49 [facility] (Rec: 08/06/18 09:53 [facility] [id number]) OT Summary Assessment and Plan Summary Assessment Summary Pt doing well today and to be going home and friend to assist with his needs. Frequency of Treatment Frequency Of Treatment Once a Day Discharge Recommendations OT Discharge Recommendations Home with Assistance
--- NOTE | 2018-08-06 10:25 | PT.IPTN ---
Current Diagnoses Unilateral primary osteoarthritis, right knee (08/03/18) Surgery Performed Operation Date: 08/03/18 10:15 Actual Procedures p Total Knee Arthroplasty(Right) - Roman Johnston MD Physical Therapy Treatment Note M2 PT-IP Current Condition Start: 08/03/18 18:00 Freq: NEEDED Status: Discharge Protocol: Document 08/03/18 16:40 [facility] (Rec: 08/03/18 18:09 AB [id number]) Physical Therapy Current Condition Current Condition Evaluation Date 08/03/18 Treatment Diagnosis s/p R TKA Onset Date 08/03/18 Weight Bearing Status Weight Bearing Status Weight Bear as Tolerated M3 PT-IP Subjective Start: 08/03/18 18:00 Freq: NEEDED Status: Discharge Protocol: Document 08/06/18 10:25 [facility] (Rec: 08/06/18 11:43 [facility] [id number]) Subjective Physical Therapy Visit Type Type Treatment Note Visit Start Time 10:00 Visit Stop Time 10:25 Total Visit Minutes 25 Number of STITCHING DEPARTMENT SUPERVISOR Visits 3 Physical Therapy Visit Comments Patient Comments Pt feels ready to go home. Therapy Pain Assessment Pain When Pain Assessed At Rest Pain Present Pain Present Pain Reported Location Right Knee Intensity 3 Scale Used Numeric (1 - 10) M4 PT-IP Mobility and Gait Start: 08/03/18 18:00 Freq: NEEDED Status: Discharge Protocol: Document 08/06/18 10:25 [facility] (Rec: 08/06/18 11:43 [facility] [id number]) PT-Transfer Assessment Sit to and From Stand Sit to and from Stand Standby Assistance Equipment Transfer Assistive Device Gait Belt Front Wheeled Walker Transfers Transfer Destination Chair Gait Assessment Gait Gait Assistance Required: Contact Guard Assist Distance (Feet) 250 Able to Maintain Weight Bearing Status Yes During Gait Assistive Devices Assistive Device Gait Belt Front Wheeled Walker Gait Deviations General Gait Pattern Antalgic Factors Limiting Gait Function Factors Limiting Gait Function Decreased Strength Pain Stair Climbing Assessment Evaluation Level of Assist On Stairs Standby Assistance Devices Stair Climbing Assistive Devices Right Railing Technique/Endurance Stair Climbing Direction Ascend and Descend Stair Climbing Technique Step to Step Number of Steps Climbed 3 Query Text: Stair Climbing Set # Repetitions (reps) 2 M5 PT-IP Objective Assessments Start: 08/03/18 18:00 Freq: NEEDED Status: Discharge Protocol: Document 09/26/18 16:40 [facility] (Rec: 08/03/18 18:09 AB [id number]) Orientation Orientation/Cognition Level of Alertness Alert Orientation Name Age Birthday Month Date Year Day of Week Place Situation Safety Awareness Understands Safety Issues Gross Range of Motion Lower Extremity ROM Assessment Within Functional Limits Strength Lower Extremity Strength Assessment Within Functional Limits Sensation Assessment Sensation Gross Sensation WNL Muscle Tone Muscle Tone WNL Yes M6 PT-IP Treatment Start: 08/03/18 18:00 Freq: NEEDED Status: Discharge Protocol: Document 08/06/18 10:25 [facility] (Rec: 08/06/18 11:43 [facility] [id number]) Physical Therapy Treatment Exercises Exercises Ankle Pumps Quad Sets Heel Slides Seated Knee Flexion/Extension M7 PT-IP Assessment and Plan Start: 08/03/18 18:00 Freq: NEEDED Status: Discharge Protocol: Document 08/06/18 10:25 [facility] (Rec: 08/06/18 11:43 [facility] [id number]) PT Summary Assessment and Plan Summary Assessment Summary Pt improving with moiblity. He needed cues for gait pattern with FWW. He was safe and stable with stair mobility. Frequency of Treatment Frequency Of Treatment Twice a Day Treatment Plan Physical Therapy Treatment Plan Transfer Training Gait Training Therapeutic Exercise Post Op Education Discharge Planning Recommendations To Nursing Amount of Assist Needed 1 Person Assist Discharge Recommendations PT Discharge Recommendations Home with Assistance Outpatient PT
== END 2018-08-06 11:09 | disposition home or self-care (01) ==
LOC: AC 08-05 15:19 → OR 08-08 09:18
PROVIDERS: Admitting Provider Orthopaedic Surgery; PCP Family Medicine; Visit Provider Orthopaedic Surgery
PROC: 0SRC0JZ Replacement of Right Knee Joint with Synthetic Substitute, Open Approach (ICD-10-PCS; CPT 27447; principal; 2018-08-03 10:15)
DX: M17.11 Unilateral primary osteoarthritis, right knee (principal); I10 Essential (primary) hypertension; Z86.73 Personal history of transient ischemic attack (TIA), and cerebral infarction without residual deficits; G89.18 Other acute postprocedural pain; Z87.891 Personal history of nicotine dependence
CPT/HCPCS: 27447; 36415; 64447; 73560; 85014; 85018; 94762; 97110; 97116; 97161; 97165; 97530; 97535; C1776; G0378; C9290; J0690; J1100; J2250; J2274; J2405; J2704; J3010

== ENCOUNTER → 2020-03-22 07:09 | Outpatient (CLI) | payer MEDICARE, OTHER, SELFPAY ==
[2018-08-03 13:09] VITALS: BMI 26.8
[2020-03-22 09:12] LABS: Prostate Specific Antigen 0.681 ng/mL (0.10-4.00)
[2020-03-28 05:41] LABS: Percent Free Testosterone 1.91 % (1.50-4.20); Testosterone Free 8.17 ng/dL (5.00-21.00); Testosterone Total 427.9 ng/dL (264.0-916.0)
== END ==
PROVIDERS: PCP Family Medicine; Referring Provider Urology; Visit Provider Urology
DX: Z12.5 Encounter for screening for malignant neoplasm of prostate (principal); N52.9 Male erectile dysfunction, unspecified
CPT/HCPCS: 36415; 84153; 84402; 84403

== ENCOUNTER → 2021-02-10 13:54 | Outpatient (CLI) | payer MEDICARE, OTHER, SELFPAY ==
[2018-08-03 13:09] VITALS: BMI 26.8
--- NOTE | 2021-02-10 14:18 | DI.CT.S_ITS ---
PROCEDURE: CT LUMBAR SPINE WO CON INDICATIONS: Sciatica TECHNIQUE: Noncontrast 3 mm thick sections acquired from the T12 level to the sacrum. Sagittal and coronal reformats were constructed. For radiation dose reduction, the following was used: automated exposure control. COMPARISON: [facility], MR, L-SPINE WITHOUT CONTRAST, 06/28/2017, 8:40. [facility] [place], CR, XR LUMBAR SPINE 2 OR 3 VIEWS, 02/04/2021, 9:19. [facility] [place], CR, XR LUMBAR SPINE 2 OR 3 VIEWS, 10/12/2019, 10:09. FINDINGS: Image quality: Excellent. Bones: Postsurgical changes compatible with L5-S1 PLIF. Orthopedic hardware is intact. No lucency is identified at the bone hardware interface. There is mild L5-S1 anterolisthesis secondary to bilateral L5 pars interarticularis defects. There is trace L1-L2 retrolisthesis. Convex left scoliosis of the thoracolumbar spine. No acute vertebral body compression fractures. No suspicious lytic or blastic bony lesions. T12-L1: Disc height is normal. Minimal, diffuse disc bulge. No central stenosis. No neural foraminal narrowing. No neural compression. Disc height is normal. Mild, diffuse disc bulge. No central stenosis. Mild bilateral neural foraminal narrowing. No neural compression. L1-L2: Disc height is normal. Mild, diffuse disc bulge. Mild narrowing of the central canal. Mild bilateral neural foraminal narrowing. No neural compression. L2-L3: Mild loss of disc height. Vacuum disc phenomenon. Mild bilateral facet hypertrophy. Mild to moderate narrowing of the central canal. Moderate right and mild left neural foraminal narrowing. No neural compression L3-L4: Disc height is normal. Mild, diffuse disc bulge. Mild bilateral facet hypertrophy. Mild to moderate narrowing of the central canal. Moderate to severe right and moderate left neural foraminal narrowing with slight compression of the exiting right L3 nerve root. L4-L5: Disc height is normal. Vacuum disc phenomenon. Moderate, diffuse disc bulge. Moderate right and mild left facet hypertrophy. Moderate narrowing of the central canal. Severe bilateral neural foraminal narrowing with compression of the exiting L4 nerve roots. L5-S1: Status post fusion. Mild, diffuse disc bulge. Moderate bilateral facet hypertrophy. No central stenosis. Severe bilateral neural foraminal narrowing with marked compression of the exiting L5 nerve roots. Soft tissues: No retroperitoneal masses or hematomas. Visualized aorta is normal in caliber. IMPRESSION: 1. Status post L5-S1 PLIF. 2. Multilevel degenerative disc disease. 3. Multilevel facet arthropathy. 4. Grade 1 L5-S1 isthmic spondylolisthesis. 5. Severe bilateral L4-L5 and L5-S1 neural foraminal narrowing with compression of the exiting bilateral L4 and exiting bilateral L5 nerve roots. Moderate to severe right L3-L4 neural foraminal narrowing with slight compression of the exiting right L3 nerve root. 6. No severe central canal narrowing. Dictated by: Yola Quiñonez MD, PhD on 02/10/2021 at 14:48 Approved by: Yola Quiñonez MD, PhD on 02/10/2021 at 14:54
== END ==
PROVIDERS: PCP Family Medicine; Referring Provider Orthopaedic Surgery Orthopaedic Surgery of the Spine; Visit Provider Orthopaedic Surgery Orthopaedic Surgery of the Spine
DX: M54.31 Sciatica, right side (principal); M51.36 Other intervertebral disc degeneration, lumbar region; M47.896 Other spondylosis, lumbar region; M43.17 Spondylolisthesis, lumbosacral region; M48.07 Spinal stenosis, lumbosacral region
CPT/HCPCS: 72131

== ENCOUNTER → 2024-09-27 16:19 | Outpatient (CLI) | payer MEDICARE, OTHER, SELFPAY ==
[2018-08-03 13:09] VITALS: BMI 26.8
--- NOTE | 2024-09-27 | DI.US.S_ITS ---
PROCEDURE: US RENAL COMPLETE INDICATIONS: left flank pain TECHNIQUE: Real-time scanning was performed of the kidneys and bladder, with image documentation. COMPARISON: None. FINDINGS: Kidneys: Kidneys are normal in size. Right kidney measures 11.3 cm long; left kidney measures 11.1 cm long. Right renal cortical thickness is 1.7 cm; left renal cortical thickness is 1.1 cm. 2.9 x 6.1 x 7.1 cm right inferior pole simple cyst. Mild left hydronephrosis that persisted after voiding. No right hydronephrosis. Bladder: Pre-void bladder volume is 132 mL. Post-void residual is 0 mL. Pre-void images demonstrate no intraluminal masses or stones. On pre-void images, bilateral ureteral jets are not identified with color Doppler interrogation. (Of note, ureteral jets may not be detectable in up to 25% of cases due to insufficient differences in specific gravity between ureteral and bladder urine). Miscellaneous: No free pelvic fluid. IMPRESSION: 1. Mild left hydronephrosis without obstructing calculus. Consider a CT urogram for further evaluation. 2. Right inferior pole 6.1 cm simple renal cyst. Dictated by: Duane Lin M.D. on 09/28/2024 at 17:21 Approved by: Duane Lin M.D. on 09/28/2024 at 17:28
== END ==
LOC: US 16:22
PROVIDERS: PCP Family Medicine; Referring Provider Nurse Practitioner; Visit Provider Nurse Practitioner
DX: N13.30 Unspecified hydronephrosis (principal); N28.1 Cyst of kidney, acquired; N41.1 Chronic prostatitis; R10.9 Unspecified abdominal pain; N40.1 Benign prostatic hyperplasia with lower urinary tract symptoms; R39.15 Urgency of urination; R39.12 Poor urinary stream; N35.819 Other urethral stricture, male, unspecified site
CPT/HCPCS: 76770

== ENCOUNTER → 2024-10-03 14:10 | Outpatient (CLI) | payer MEDICARE, OTHER, SELFPAY ==
[2018-08-03 13:09] VITALS: BMI 26.8
--- NOTE | 2024-10-03 14:19 | DI.CT.S_ITS ---
PROCEDURE: CT KIDNEY URETER BLADDER (KUB) INDICATIONS: LEFT FLANK PAIN TECHNIQUE: Axial sections were acquired from the lung bases to the pubic symphysis. Coronal and sagittal reformats were performed. For radiation dose reduction, the following was used: automated exposure control, adjustment of mA and/or kV according to patient size. COMPARISON: [facility], , RENAL COMPLETE, 09/27/2024, 16:50. FINDINGS: Image quality: Diagnostic. Lower Chest: Smooth, pleural-based left lower lobe 6 mm solid nodule, 3/5. Lung bases are otherwise normal. URINARY: Right Kidney: 6.6 cm simple exophytic cyst arising from the mid to lower pole. No hydronephrosis or stone. Right Ureter: No hydroureter, ureteral calculus, or periureteric inflammation. Left Kidney: A few lower pole parapelvic cysts are present. No hydronephrosis. No intrarenal calculi. Lobulated cortical contour without discrete mass. Left Ureter: No hydroureter, ureteral calculus, or periureteric inflammation. Bladder: Normal wall thickness. No stones. ABDOMEN: Liver: No contour-deforming solid mass. Gallbladder: No wall thickening or calcified stones. Biliary ducts: No biliary dilation. Pancreas: Normal size and morphology without visible ductal dilatation or inflammation. Spleen: Size is within normal limits. Adrenal Glands: No adrenal nodules. Stomach and Bowel: Stomach and small bowel loops are normal caliber. Descending and proximal sigmoid colon diverticulosis without acute diverticulitis. Peritoneum: No abnormal intraperitoneal fluid. No free air. Ventral Wall: No hernia. Abdominal Nodes: No enlarged retroperitoneal or mesenteric lymph nodes. Vessels: Aorta and inferior vena cava are normal in size. PELVIS: Pelvic Organs: Moderate prostatomegaly. Pelvic Nodes: Unremarkable. Miscellaneous: No inguinal hernias are seen. 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 Surgical changes of fusion L5-S1. Moderate levoscoliosis. IMPRESSION: Left lower pole parapelvic cysts. No evidence of left hydronephrosis. No intrarenal calculi or evidence of obstructive uropathy. Incidental 6.6 cm right renal cyst. Moderate prostatomegaly. Distal colonic diverticulosis without acute diverticulitis. Dictated by: Candi Chin M.D. on 10/04/2024 at 10:04 Approved by: Candi Chin M.D. on 10/04/2024 at 10:14
== END ==
LOC: CT 14:11
PROVIDERS: PCP Family Medicine; Referring Provider Nurse Practitioner; Visit Provider Nurse Practitioner
DX: N28.1 Cyst of kidney, acquired (principal); R10.9 Unspecified abdominal pain; R91.1 Solitary pulmonary nodule; K57.30 Diverticulosis of large intestine without perforation or abscess without bleeding; N40.0 Benign prostatic hyperplasia without lower urinary tract symptoms
CPT/HCPCS: 74176

== ENCOUNTER → 2025-01-19 09:43 | Outpatient (CLI) | payer MEDICARE, OTHER, SELFPAY ==
[2018-08-03 13:09] VITALS: BMI 26.8
--- NOTE | 2025-01-19 10:13 | EKG_ITS ---
[place] [id number] [address] [place] [address] Test Date: 2025-01-19 Pat Name: Jack Hagen Department: Room: Gender: Male Podiatry Doctor: : 1940 Requested By: Order Number: [id number] Reading MD: Montana Reyes Measurements Intervals [place] Rate: 61 P: 62 OK: 186 QRS: 77 QRSD: 132 T: 22 QT: 402 QTc: 404 Interpretive Statements Normal sinus rhythm Right bundle branch block Electronically Signed On 01-20-2025 18:29:10 PDT by Montana Reyes
[2025-01-19 10:22] LABS: Add Manual Diff / Slide Review NO; Basophils Absolute Auto 0 /uL (0-100); Basophils Percent Auto 1.1 % (0-2); Eosinophils Absolute Auto 100 /uL (0-450); Eosinophils Percent Auto 3.3 % (2-4); Hematocrit 37.5 % (41-53); Lymphocytes Absolute Auto 1100 /uL (1100-4500); Lymphocytes Percent Auto 26.5 % (25-40); Mean Corpuscular HGB Conc 34.6 % (30-36); Mean Corpuscular Hemoglobin 31.9 PG (26-34); Mean Corpuscular Volume 92.3 fL (80-100); Monocytes Absolute Auto 400 /uL (0-900); Monocytes Percent Auto 10.5 % (3-14); Neutrophils Absolute Auto 2400 /uL (1500-7000); Neutrophils Percent Auto 58.6 % (50-75); Platelet Count 230 X10^3/uL (150-400); Red Blood Cell Count 4.07 X10^6/uL (4.5-5.9); Red Cell Distribution Width 13.9 % (11.6-14.8); White Blood Cell Count 4.1 X10^3/uL (4.5-11.0)
[2025-01-19 10:42] LABS: Appearance Urine UA CLEAR; Bilirubin Urine UA NEGATIVE (NEGATIVE); Color Urine UA YELLOW; Glucose Urine UA NEGATIVE (Negative); Ketones Urine UA NEGATIVE (NEGATIVE); Leukocyte Esterase Urine UA NEGATIVE (NEGATIVE); Nitrite Urine UA NEGATIVE (Negative); Occult Blood Urine UA NEGATIVE (Negative); Protein Urine UA NEGATIVE (Negative); Specific Gravity Urine UA 1.015 (1.000-1.035); Urobilinogen Urine UA 0.2 E.U./dL (0.2)
[2025-01-19 10:45] LABS: Hemoglobin A1C% w Est Avg Glu 5.3 % (4.0-6.0)
[2025-01-19 10:52] LABS: Bacteria Urine Occasional (0-1); RBC Urine 0-1/HPF (0-5/HPF); Squamous Epithelial Cell Urine 0-1 /HPF (0-5/HPF); Urine Volume 10mL (spun); WBC Urine 0-1/HPF (0-5/HPF)
[2025-01-19 10:53] LABS: Culture Indicated Urine Cult Not Indicated
[2025-01-19 11:16] LABS: BUN Creatinine Ratio 17.9 (6-22); Blood Urea Nitrogen 14 mg/dL (9-20); Calcium 9.2 mg/dL (8.4-10.2); Carbon Dioxide 27 mmol/L (22-32); Chloride 98 mmol/L (98-107); Estimated Glomerular Filt Rate > 60 mL/min (>60); Glucose 87 mg/dL (80-110); HEMOLYSIS < 15 (0-50); Sodium 132 mmol/L (137-145)
== END ==
PROVIDERS: PCP Family Medicine; Referring Provider Orthopaedic Surgery; Visit Provider Orthopaedic Surgery
DX: Z01.818 Encounter for other preprocedural examination (principal); R73.9 Hyperglycemia, unspecified; Z01.812 Encounter for preprocedural laboratory examination; N39.0 Urinary tract infection, site not specified
CPT/HCPCS: 36415; 80048; 81001; 83036; 85025; 93005

== ENCOUNTER → 2025-08-15 10:28 | Outpatient (CLI) | payer MEDICARE, OTHER, SELFPAY ==
[2018-08-03 13:09] VITALS: BMI 26.8
--- NOTE | 2025-08-15 10:50 | EKG_ITS ---
[address] [address] Test Date: 2025-08-15 Pat Name: Jack Hagen Department: [facility] Room: Gender: Male Produce Sorter: SALAZAR : 1940 Requested By: Order Number: [id number] Reading MD: Jonatahn Kong Measurements Intervals [place] Rate: 72 P: 59 OR: 176 QRS: 80 QRSD: 132 T: 22 QT: 394 QTc: 431 Interpretive Statements Normal sinus rhythm Nonspecific intraventricular block Electronically Signed On 08-16-2025 17:05:18 PDT by Jonathan Kong
[2025-08-15 11:12] LABS: Appearance Urine UA CLEAR; Bilirubin Urine UA NEGATIVE (NEGATIVE); Color Urine UA YELLOW; Glucose Urine UA NEGATIVE (Negative); Ketones Urine UA NEGATIVE (NEGATIVE); Leukocyte Esterase Urine UA NEGATIVE (NEGATIVE); Nitrite Urine UA NEGATIVE (Negative); Occult Blood Urine UA NEGATIVE (Negative); Protein Urine UA NEGATIVE (Negative); Specific Gravity Urine UA 1.010 (1.000-1.035); Urobilinogen Urine UA 0.2 E.U./dL (0.2); pH Urine UA 6.5 (4.5-8.0)
[2025-08-15 11:16] LABS: Culture Indicated Urine Cult Not Indicated
[2025-08-15 11:22] LABS: Add Manual Diff / Slide Review NO; Hematocrit 36.5 % (41-53); Hemoglobin 12.4 g/dL (13.5-17.5); Lymphocytes Absolute Auto 1200 /uL (1100-4500); Mean Corpuscular HGB Conc 34.1 % (30-36); Mean Corpuscular Hemoglobin 31.6 PG (26-34); Mean Corpuscular Volume 92.6 fL (80-100); Platelet Count 168 X10^3/uL (150-400)
[2025-08-15 11:25] LABS: Hemoglobin A1C% w Est Avg Glu 5.4 % (4.0-6.0)
[2025-08-15 11:36] LABS: Blood Urea Nitrogen 15 mg/dL (9-20); Calcium 8.8 mg/dL (8.4-10.2); Carbon Dioxide 26 mmol/L (22-32); Chloride 98 mmol/L (98-107); Estimated Glomerular Filt Rate > 60 mL/min (>60); Glucose 126 mg/dL (70-99); HEMOLYSIS < 15 (0-50); Potassium 4.5 mmol/L (3.4-5.1); Sodium 132 mmol/L (137-145)
== END ==
PROVIDERS: PCP Family Medicine; Referring Provider Orthopaedic Surgery; Visit Provider Orthopaedic Surgery
DX: Z01.812 Encounter for preprocedural laboratory examination (principal); N39.0 Urinary tract infection, site not specified; R73.9 Hyperglycemia, unspecified; Z01.818 Encounter for other preprocedural examination
CPT/HCPCS: 80048; 81001; 83036; 85025; 93005